=== PATIENT | male | born 1985 | race Caucasian/White ===

== ENCOUNTER 2021-01-11 18:03 | Emergency (ER) | payer SELFPAY ==
[~2021-01-11] VITALS: Ht 170.2 cm; Wt 68.0 kg
[2021-01-11] MEDS ORDERED: LORAZEPAM 2MG/ML CPJ IM STA (20:03)
[2021-01-11] MEDS ORDERED: DIPHENHYDRAMINE 50MG/ML VIAL IM STA (20:03)
[2021-01-11] MEDS ORDERED: HALOPERIDOL LACTATE 5MG/ML VIAL IM STA (20:03)
[2021-01-11 23:00] LABS: BASOPHILS % 0.5 % (0.0-2.0); EOSINOPHILS % 0.1 % (0.0-5.0); HEMATOCRIT. 39.8 % (42.0-52.0); HEMOGLOBIN. 13.6 g/dL (14.0-18.0); LYMPHOCYTES % 11.2 % (20.0-50.0); MEAN CORPUSCULAR HEMOGLOBIN 28.8 pg (28.0-32.0); MEAN PLATELET VOLUME 7.3 fl (7.4-10.4); MONOCYTES % 10.6 % (2.0-8.0); NEUTROPHILS % 77.6 % (40.0-76.0); PLATELET 311 x1000/uL (130-400); RED BLOOD CELL COUNT 4.74 mill/uL (4.7-6.1); RED CELL DISTRIBUTION WIDTH 16.6 % (11.6-14.6)
[2021-01-11 23:07] LABS: CHLORIDE 108 mEq/L (98-107)
[2021-01-11 23:13] LABS: ETHANOL BLOOD < 10 mg/dL
[2021-01-11 23:13] LABS: CLARITY URINE CLEAR (CLEAR); COLOR URINE YELLOW (YELLOW); KETONES URINE TRACE (NEGATIVE); LEUKOCYTE ESTERASE URINE NEGATIVE (NEGATIVE); NITRITE URINE NEGATIVE (NEGATIVE); OCCULT BLOOD URINE NEGATIVE (NEGATIVE); PH URINE 5.5 (4.5-8.0); PROTEIN URINE NEGATIVE (NEGATIVE); SPECIFIC GRAVITY URINE 1.024 (1.005-1.030); UROBILINOGEN URINE 0.2 E.U./dL (0.2-1.0)
[2021-01-11 23:24] LABS: CANNABINOID URINE SCREEN NEGATIVE (NEGATIVE); PHENCYCLIDINE URINE SCREEN NEGATIVE (NEGATIVE)
[2021-01-11 23:25] LABS: *AMPHETAMINES SCREEN URINE PRESUMTIVE POSITIVE (NEGATIVE); *BARBITURATES SCREEN URINE NEGATIVE (NEGATIVE); *BENZODIAZEPINES SCREEN URINE NEGATIVE (NEGATIVE); *COCAINE SCREEN URINE NEGATIVE (NEGATIVE); METHADONE URINE SCREEN NEGATIVE (NEGATIVE); OPIATES URINE SCREEN NEGATIVE (NEGATIVE)
[2021-01-12 15:30] VITALS: BP 108/66
== END 2021-01-12 15:32 | disposition home or self-care (01) ==
LOC: ER 18:03
DX: T43.621A Poisoning by amphetamines, accidental (unintentional), initial encounter (principal); R45.1 Restlessness and agitation; Z78.1 Physical restraint status; Y92.488 Other paved roadways as the place of occurrence of the external cause
CPT/HCPCS: 36415; 80053; 80305; 80307; 80320; 80329; 81003; 85025; 93005; 96372; 99285; J1200; J1630; J2060; Z7610; G0480